=== PATIENT | male | born 1990 | race Caucasian/White ===

== ENCOUNTER 2021-06-20 21:25 | Emergency (ER) | payer OTHER ==
[2021-06-20 21:42] VITALS: BP 147/83
[2021-06-20 22:30] LABS: POTASSIUM 3.3 mmol/L (3.5-5.0)
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
== END 2021-06-20 23:06 | disposition home or self-care (01) ==
LOC: ED 21:25
DX: T75.4XXA Electrocution, initial encounter (principal); W86.1XXA Exposure to industrial wiring, appliances and electrical machinery, initial encounter; Y92.139 Unspecified place military base as the place of occurrence of the external cause
CPT/HCPCS: 36415; 80048; 84484; 93005; 99282; 99283